=== PATIENT | female | born 1965 | race African-American/Black ===

== ENCOUNTER 2018-06-21 10:41 | Emergency (ER) | payer SELFPAY ==
[~2018-06-21] VITALS: Ht 160 cm; Wt 87.0 kg
[2018-06-21] MEDS ORDERED: KETOROLAC 30MG/ML VIAL IV STA (11:34)
[2018-06-21] MEDS ORDERED: SODIUM CHLORIDE 0.9% 1,000 ML IV ONE (11:34)
[2018-06-21] MEDS ORDERED: ONDANSETRON HCL 4MG/2ML INJ IV STA (11:34)
[2018-06-21] MEDS ORDERED: MORPHINE SULFATE 4 MG/ML CPJ (NOT FOR IM USE) IV STA (11:34)
[2018-06-21] MEDS ORDERED: ENALAPRIL 2.5MG/2ML VIAL 2ML IV ONE (11:45)
[2018-06-21 12:26] LABS: CHLORIDE 103 mEq/L (98-107)
[2018-06-21] MEDS ORDERED: DEXAMETHASONE 10 MG/ML VIAL IV ONE (16:15)
[2018-06-21 17:36] VITALS: BP 135/80
== END 2018-06-21 17:52 | disposition home or self-care (01) ==
LOC: ER 11:09
DX: G43.909 Migraine, unspecified, not intractable, without status migrainosus (principal); I10 Essential (primary) hypertension; Z91.19 Patient's noncompliance with other medical treatment and regimen; Z88.5 Allergy status to narcotic agent
CPT/HCPCS: 36415; 70450; 80048; 96361; 96374; 96375; 99285; J1100; J1885; J2270; J2405; J3490; J7030